=== PATIENT | male | born 1940 | race African-American/Black ===

== ENCOUNTER 2024-03-07 10:48 | Outpatient (AMB) | payer MEDICARE, SELFPAY ==
--- NOTE | 2024-03-07 10:50 | A.OFFVIS_ITS ---
Vital Signs 03/07/24 11:04 Height 6 ft 3 in Weight 172 lb BMI 21.5 BP 140/84 H Blood Pressure Location Rt brachial Position Sitting Pulse 87 Pulse Source Pulse Oximeter Pulse Oximetry (%) 99 Oxygen Delivery Method Room Air Intake Visit Reasons: ENP-Seizure disorder-Conf Intake Note: Patient presents for seizures disorder. Allergies No Known Allergies Allergy (Verified 03/07/24 11:01) Medication List - Last Reconciled 03/07/24 by CL Espinoza apixaban (Eliquis) 5 mg PO BID ascorbic acid (vitamin C) 250 mg PO DAILY atorvastatin 80 mg PO DAILY docusate sodium 100 mg PO BID ferrous sulfate 325 mg PO BID levetiracetam 500 mg PO BID losartan 25 mg PO DAILY metformin 500 mg PO DAILY metoprolol succinate ER mg PO pen needle, diabetic (BD Ami 2nd Gen Pen Needle) As directed polyethylene glycol 3350 17 grams PO DAILY sennosides (senna) 8.6 mg PO DAILY PRN tamsulosin 0.4 mg PO DAILY HPI Comments Details: 83-yr-old male presents for neurological evaluation of: seizure. Pt is a poor historian. Pt is accompanied by his friend, Briseyda. PMH significant for ?HTN, DM2, CKD, PAF (post cabg), CAD s/p CABG. anemia. Pt does not recall having seizures, states he was told he had a seizure a few yrs ago. He denies recent known episodes of staring off, convulsions, tremor, repetitive movements. He is compliant w/ Keppraq 500mg bid.. Denies side effects. Denies mood changes. Pt tells me he is Ind w/ ADLs, howver does live w/ someone, and someone does cook for him. Walks w/ a walker at home. Per review of [facility] notes initial seizure activity was observed during a September 2021 [facility] hosp admission for worsening encephalopathy over the span of a month, HONK with a glucose of 587, FANNIE and Klebsiella UTI. With episodes of being awake but confused and at times waxing and waning, and per chart his stated that he had been having cognitive decline especially over the prior two weeks. On 10/12pm he was noted to have worsening level of consciousness with episodes of unresponsiveness and left gaze deviation lasting 10-20 seconds, but in between would be alert and oriented x2. VEEG did not show any epileptic activity. Head CT w/o, 10/12/2021, showedModerate prominence of the ventricles and sulci consistent with parenchymal volume loss. Moderate low-density white matter changes. Negative insular ribbon sign. Atherosclerotic vascular calcification of the carotid and vertebral arteries but negative hyperdense vessel sign. Pt was emperically started on Keppra 500mg bid. He did have neuro f/u x's 2 at [facility] and was avdised to continue on Keppra 500mg bid. Review of recent labs show chronic anemia, normal LFTs/renal function. Pt notes he does take hi ferrous sulfate bid, but was not sure if taking it w/ vit c. He did recently see cardiology, Dr Langston- who ordered f/u echocardiogram. [facility] Medical History (Updated 03/07/24 @ 13:02 by CL Espinoza) CKD (chronic kidney disease) CAD (coronary artery disease) HTN (hypertension) Anemia Diabetes Renal disease Afib Surgical History (Updated 03/07/24 @ 11:02 by PEPPER Herrera) H/O heart surgery Social History (Updated 03/07/24 @ 11:03 by PEPPER Herrera) Alcohol intake: never Patient Tobacco Use Status: Never used Tobacco Review of Systems Const All systems reviewed & are unremarkable except as noted in HPI and below Physical Exam Vital Signs: Last Vital Signs Pulse 87 03/07/24 11:04 BP 140/84 H 03/07/24 11:04 Pulse Ox 99 03/07/24 11:04 Oxygen Delivery Method Room Air 03/07/24 11:04 BMI result Body Mass Index 21.5 Const General: cooperative and no acute distress HEENT Head: Yes normocephalic Resp Effort & Inspection: normal respiratory effort and able to speak in complete sentences Neuro Other: A&O w/ mild STM laposes. Right medial eye small spots of of redness- c/w bleed. Pt denies pain, drainage, itch. Right eye EOM intact w/o pain. Left eye EOM intact w/ exception of left eye rotates laterally on convergence. DTRs dulled throughout. MS 5/5 throughout Sitting upright in w/c General: CN's II-XI intact bilaterally (w/ exception left eye impaired vision) Psych Appearance: grossly normal Speech and movement: Clear speech present Affect: normal affect Attitude: cooperative Assessment & Plan Assessment & Plan (1) Seizure: Comment: One known episode witnessed during September 2021 hospitalization for HONK and UTI. VEEG- normal. Head CT- Moderate prominence of the ventricles and sulci consistent with parenchymal volume loss. Moderate low-density white matter changes. Code(s): R56.9 - Unspecified convulsions Category: Medical (2) Anemia: Code(s): D64.9 - Anemia, unspecified Category: Medical Plan Reviewed [facility] notes w/ pt. Discussed that although pt has had one known episode, he does have multiple comorbidities and has required multiple hospitalizations in the last few years, which does increase risk for seizure recurrence, especially if untreated. Continue Keppra 500mg bid, as pt has not had any known breakthrough episodes and is tolerating Keppra well Advised pt to add vitamin c to his ferrous sulfate 325mg bid order to improve absorption. Pt will call his eye provider to f/u on right eye redness. He thinks some of his facial cream may have gotten into his eye. follow-up in 6 months or sooner prn. Medications: New levetiracetam 500 mg PO BID 30 days 60 tabs 6RF ascorbic acid (vitamin C) take w/ ferrous sulfate 250 mg PO BID 30 days 60 tabs 6RF Coding Level of Care Code New Pt Level 4 (43806) Diagnoses Seizure R56.9 Anemia D64.9
[2024-03-07 11:04] VITALS: BP 140/84; PULSE 87; O2SAT 99; BMI 21.5
== END 2024-03-07 12:10 | disposition home or self-care (01) ==
PROVIDERS: PCP Internal Medicine; Visit Provider Nurse Practitioner Family
DX: R56.9 Unspecified convulsions (principal); D64.9 Anemia, unspecified
CPT/HCPCS: 99204

== ENCOUNTER → 2024-03-07 10:48 | Outpatient (BNVA) | payer MEDICARE, SELFPAY | PROVIDERS: PCP Internal Medicine; Visit Provider Nurse Practitioner Family | DX: R56.9 Unspecified convulsions (principal); E11.22 Type 2 diabetes mellitus with diabetic chronic kidney disease; I12.9 Hypertensive chronic kidney disease with stage 1 through stage 4 chronic kidney disease, or unspecified chronic kidney disease; N18.9 Chronic kidney disease, unspecified; D63.1 Anemia in chronic kidney disease | CPT/HCPCS: 99202 ==

== ENCOUNTER 2024-09-19 11:03 | Outpatient (AMB) | payer MEDICARE, SELFPAY ==
--- NOTE | 2024-09-19 11:38 | A.OFFVIS_ITS ---
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4 mg PO DAILY HPI Comments Details: The patient is an 84-year-old male presenting with a follow-up for seizure disorder. Pt is a poor historian. Pt is accompanied by his friend, Briseyda. PMH significant for ?HTN, DM2, CKD, PAF (post cabg), CAD s/p CABG. anemia. He had a prior incident suspected to be a seizure and is currently on levetiracetam 500 mg twice daily with no new seizures reported. During the last visit, patient was advised to start taking vitamin-C with his ferrous sulfate, optimize his anemia to remain. He states he is compliant with the vitamin-C and iron. 08/01/2024 H&H 11.5/36.3, BUN and creatinine 20/1.64, calculated GFR low at 41, iron low at 48, TIBC low at 237, iron sat 20%, ferritin elevated at 448, hemoglobin A1c elevated at 7.3%. He has follow-up with Hematology next month. Multiple specialists provide ongoing care for associated conditions, , including Nephrology Dr. Dewitt. The ocular condition identified earlier has resolved without intervention. Epilepsy ReviewThe patient is an 84-year-old male presenting with a follow-up for seizure disorder. - No new seizure-like activity noted since the last visit in February. - Currently on levetiracetam 500 mg twice daily for seizure prevention. - Reports compliance with medication and no adverse effects. - No status epilepticus episodes noted. - No recent hospitalization related to seizure activity. 03/07/2024, initial HPI: 83-yr-old male presents for neurological evaluation of: seizure. Pt is a poor historian. Pt is accompanied by his friend, Briseyda. PMH significant for ?HTN, DM2, CKD, PAF (post cabg), CAD s/p CABG. anemia. Pt does not recall having seizures, states he was told he had a seizure a few yrs ago. He denies recent known episodes of staring off, convulsions, tremor, repetitive movements. He is compliant w/ Keppraq 500mg bid.. Denies side effects. Denies mood changes. Pt tells me he is Ind w/ ADLs, howver does live w/ someone, and someone does cook for him. Walks w/ a walker at home. Per review of [facility] notes initial seizure activity was observed during a September 2021 [facility] hosp admission for worsening encephalopathy over the span of a month, HONK with a glucose of 587, FANNIE and Klebsiella UTI. With episodes of being awake but confused and at times waxing and waning, and per chart his stated that he had been having cognitive decline especially over the prior two weeks. On 10/12pm he was noted to have worsening level of consciousness with episodes of unresponsiveness and left gaze deviation lasting 10-20 seconds, but in between would be alert and oriented x2. VEEG did not show any epileptic activity. Head CT w/o, 10/12/2021, showedModerate prominence of the ventricles and sulci consistent with parenchymal volume loss. Moderate low-density white matter changes. Negative insular ribbon sign. Atherosclerotic vascular calcification of the carotid and vertebral arteries but negative hyperdense vessel sign. Pt was emperically started on Keppra 500mg bid. He did have neuro f/u x's 2 at [facility] and was avdised to continue on Keppra 500mg bid. Review of recent labs show chronic anemia, normal LFTs/renal function. Pt notes he does take hi ferrous sulfate bid, but was not sure if taking it w/ vit c. He did recently see cardiology, Dr Langston- who ordered f/u echocardiogram. [facility] Medical History (Updated 03/07/24 @ 13:02 by CL Espinoza) CKD (chronic kidney disease) CAD (coronary artery disease) HTN (hypertension) Anemia Diabetes Renal disease Afib Surgical History H/O heart surgery Social History Alcohol intake: never Patient Tobacco Use Status: Never used Tobacco Physical Exam Vital Signs: Last Vital Signs Pulse 86 09/19/24 11:39 BP 120/86 09/19/24 11:39 Pulse Ox 97 09/19/24 11:39 Oxygen Delivery Method Room Air 09/19/24 11:39 Const General: cooperative and no acute distress HEENT Head: Yes normocephalic Resp Effort & Inspection: normal respiratory effort and able to speak in complete sentences Neuro Other: A&O w/ mild STM laposes. MS 5/5 throughout Sitting upright in w/c General: CN's II-XI intact bilaterally (w/ exception left eye impaired vision) Psych Appearance: grossly normal Speech and movement: Clear speech present Affect: normal affect Attitude: cooperative Assessment & Plan Assessment & Plan (1) Seizure: Comment: One known episode witnessed during September 2021 hospitalization for HONK and UTI. VEEG- normal. Head CT- Moderate prominence of the ventricles and sulci con sistent with parenchymal volume loss. Moderate low-density white matter changes. Code(s): R56.9 - Unspecified convulsions Category: Medical (2) Anemia: Code(s): D64.9 - Anemia, unspecified Category: Medical Plan Patient has had one known episode of seizure activity, however he does have multiple comorbidities and has required multiple hospitalizations in the last few years, which does increase risk for seizure recurrence, especially if untreated. Thus, I reviewed with the patient the continuation of levetiracetam for the prevention of seizure activity, given the lack of new episodes. We discussed the improvement of anemia under current management with additional vitamin C supplementation. The importance of following up with hematology was emphasized. The red eye issue has resolved, and general health maintenance was encouraged. Engaged in a conversation about upcoming appointments with their specialists for comprehensive care continuity. Continue Keppra 500mg bid, as pt has not had any known breakthrough episodes and is tolerating Keppra well follow-up in 12 months or sooner prn. Patient Instructions - Continue taking levetiracetam as prescribed. - Keep up with vitamin C supplementation. - Follow up with your data entry supervisor as recommended. - Monitor for any new symptoms and report them promptly. - Attend all upcoming specialist appointments. - Enjoy regular activities while adhering to any restrictions advised by your healthcare providers. Medications: Refilled levetiracetam 500 mg PO BID 30 days 60 tabs 11RF Coding Level of Care Code Est Pt Level 4 (75919) Diagnoses Seizure R56.9 Anemia D64.9
[2024-09-19 11:39] VITALS: BP 120/86; PULSE 86; O2SAT 97
== END 2024-09-19 12:20 | disposition home or self-care (01) ==
PROVIDERS: PCP Internal Medicine; Visit Provider Nurse Practitioner Family
DX: R56.9 Unspecified convulsions (principal); D64.9 Anemia, unspecified
CPT/HCPCS: 99214

== ENCOUNTER → 2024-09-19 11:03 | Outpatient (BNVA) | payer MEDICARE, SELFPAY | PROVIDERS: PCP Internal Medicine; Visit Provider Nurse Practitioner Family | DX: R56.9 Unspecified convulsions (principal); D64.9 Anemia, unspecified | CPT/HCPCS: 99212 ==